=== PATIENT | female | born 1995 | race Caucasian/White ===

== ENCOUNTER 2019-11-25 03:08 | Outpatient (CLI) | payer BC, SELFPAY ==
[2019-11-25 03:20] VITALS: BP 111/70; PULSE 94
[2019-11-25 03:58] VITALS: BP 111/70; PULSE 94
== END 2019-11-25 04:13 | disposition home or self-care (01) ==
PROVIDERS: PCP Obstetrics & Gynecology; Visit Provider Obstetrics & Gynecology
DX: O42.90 Premature rupture of membranes, unspecified as to length of time between rupture and onset of labor, unspecified weeks of gestation (principal); Z3A.00 Weeks of gestation of pregnancy not specified
CPT/HCPCS: 59025; 84112

== ENCOUNTER 2019-12-08 05:38 | Inpatient (IN) | payer BC, SELFPAY ==
[2019-12-08] VITALS (154 sets, daily range): BP systolic 63–143; BP diastolic 32–110; PULSE 82–126; RESP 16–18; TEMP 36.7–37.4; O2SAT 97–100; BMI 35.2
[2019-12-08] MEDS: LACTATED RINGERS 1,000 ML 125 ML IV CONT ×4 (09:54→13:07)
[2019-12-08 09:55] LABS: Basophils Percent Auto 0.2 % (0.2-1.2); Eosinophils Absolute Auto 0.1 K/mm3 (0-0.3); Eosinophils Percent Auto 0.8 % (0-4.4); Hematocrit 37.2 % (37.0-47.0); Hemoglobin 12.1 g/dL (12.0-15.0); Immature Granulocyte Absolute 0.08 K/mm3 (0.00-0.031); Immature Granulocyte Percent A 0.8 % (0-0.5); Lymphocytes Absolute Auto 2.14 K/mm3 (0.9-3.2); Lymphocytes Percent Auto 21.2 % (18.3-44.2); Mean Corpuscular HGB Conc 32.5 g/dl (32-36); Mean Corpuscular Hemoglobin 28.9 pg (26-34); Mean Corpuscular Volume 88.8 fl (80-100); Mean Platelet Volume 10.9 fl (7.4-10.4); Monocytes Absolute Auto 0.7 K/mm3 (0.1-0.6); Monocytes Percent Auto 6.4 % (2.6-8.5); Neutrophils Absolute Auto 7.1 K/mm3 (1.3-6.7); Neutrophils Percent Auto 70.6 % (45.5-73.1); Platelet Count Result 145 k/mm3 (150-375); Red Blood Count 4.19 M/mm3 (4.2-5.4); Red Cell Distribution Width 15.2 % (11.5-14.5); White Blood Count 10.1 K/mm3 (4.5-10.0)
--- NOTE | 2019-12-08 11:04 | LDADM ---
This patient, Jewel Hilliard, was admitted to Labor/Delivery/Recovery 102 on 12/08/19 at 05:38. Plans for labor, pain management and were discussed with patient. Patient/family oriented to hospital policies and general routines including ID bracelet, bed and alarms, visiting hours, pain management, procedures, bathroom and other care routines, personal items, smoking policy, room service/diet and guest tray routines, security routines, and visiting hours. Patient/Family are encouraged to report perceived risks to care and to ask questions if they do not understand what they are told or what they should do. See OBIX for further documentation.
--- NOTE | 2019-12-08 13:10 | PM.IMHP ---
H&P: HPI History of Present Illness Chief complaint: labor Narrative: Jewel Hilliard is a 24yo @ 38.5wks who presented in early labor. She awoke with strong, painful contractions every couple of minutes. She was found to be adilson q3-5min and made change from 3 to 4-5cm. Good movement. No leakage of fluid or bleeding. Review of Systems Review of Systems: All systems reviewed & are unremarkable except as noted in HPI and below PMFSH Family History Family History Other Lymphoma Grandparent Lung cancer Mother Bipolar 1 disorder Social History Social History Smoking status: Never smoker Substance use: never Spiritual care concerns: No Meds Home Medications and Allergies Home Medications Medication Instructions Recorded Confirmed Type PNV cmb#95-ferrous fumarate-FA 1 tablet PO DAILY 11/23/19 11/23/19 History [] ferrous sulfate 325 mg PO DAILY 11/23/19 11/23/19 History Allergies Allergy/AdvReac Type Severity Reaction Status Date / Time No Known Allergies Allergy Verified 11/23/19 14:35 Vital Signs Vital Signs - 24 hr 12/08/19 09:55 12/08/19 10:00 12/08/19 10:30 Pulse Rate 101 H 97 91 Blood Pressure 123/81 118/71 121/84 Pulse Oximetry 12/08/19 10:41 12/08/19 10:43 12/08/19 10:46 Pulse Rate 104 H 97 96 Blood Pressure 130/110 H 141/92 H 143/63 H Pulse Oximetry 100 100 12/08/19 10:48 12/08/19 10:51 12/08/19 10:53 Pulse Rate 102 H 120 H 100 Blood Pressure 133/68 116/97 H 122/77 Pulse Oximetry 100 12/08/19 10:55 12/08/19 10:56 12/08/19 10:58 Pulse Rate 98 101 H Blood Pressure 129/79 128/52 L Pulse Oximetry 98 12/08/19 11:00 12/08/19 11:01 12/08/19 11:03 Pulse Rate 110 H 108 H Blood Pressure 128/86 129/71 Pulse Oximetry 98 12/08/19 11:05 12/08/19 11:06 12/08/19 11:08 Pulse Rate 105 H 100 Blood Pressure 129/73 132/79 Pulse Oximetry 98 12/08/19 11:11 12/08/19 11:13 12/08/19 11:16 Pulse Rate 97 95 93 Blood Pressure 129/72 130/60 135/68 Pulse Oximetry 98 98 12/08/19 11:18 12/08/19 11:20 12/08/19 11:21 Pulse Rate 101 H 102 H Blood Pressure 126/70 136/77 Pulse Oximetry 98 12/08/19 11:23 12/08/19 11:25 12/08/19 11:26 Pulse Rate 101 H 93 Blood Pressure 129/76 124/71 Pulse Oximetry 97 12/08/19 11:28 12/08/19 11:30 12/08/19 11:31 Pulse Rate 92 98 Blood Pressure 128/76 124/73 Pulse Oximetry 99 12/08/19 11:33 12/08/19 11:36 12/08/19 11:38 Pulse Rate 103 H 93 109 H Blood Pressure 134/75 131/77 134/79 Pulse Oximetry 98 12/08/19 11:40 12/08/19 11:41 12/08/19 11:43 Pulse Rate 99 106 H Blood Pressure 129/76 129/77 Pulse Oximetry 98 12/08/19 11:45 12/08/19 11:46 12/08/19 11:48 Pulse Rate 106 H 103 H Blood Pressure 123/77 123/64 Pulse Oximetry 99 12/08/19 11:51 12/08/19 11:53 12/08/19 11:55 Pulse Rate 98 109 H 120 H Blood Pressure 124/52 L 123/71 122/70 Pulse Oximetry 99 12/08/19 11:56 12/08/19 11:58 12/08/19 12:00 Pulse Rate 104 H 113 H Blood Pressure 131/79 124/58 L Pulse Oximetry 100 12/08/19 12:01 12/08/19 12:03 12/08/19 12:05 Pulse Rate 126 H 96 Blood Pressure 116/62 127/77 Pulse Oximetry 100 12/08/19 12:06 12/08/19 12:08 12/08/19 12:10 Pulse Rate 101 H 105 H Blood Pressure 128/68 126/72 Pulse Oximetry 100 12/08/19 12:11 12/08/19 12:13 12/08/19 12:15 Pulse Rate 100 98 Blood Pressure 129/75 125/69 Pulse Oximetry 98 12/08/19 12:16 12/08/19 12:18 12/08/19 12:21 Pulse Rate 102 H Blood Pressure 136/47 L Pulse Oximetry 100 99 12/08/19 12:23 12/08/19 12:25 12/08/19 12:26 Pulse Rate 100 109 H Blood Pressure 134/70 124/73 Pulse Oximetry 100 12/08/19 12:28 12/08/19 12:31 12/08/19 12:33 Pulse Rate 112 H 95 100 Blood Pressure 131/72 126/61 126/75 Pulse Oximetry 98 12/08/19 12:35
[2019-12-08] MEDS: IBUPROFEN 600 MG TABLET PO (18:24)
--- NOTE | 2019-12-08 18:52 | PM.OBPRVD ---
OB - Delivery Note Procedure Delivery date: 12/08/19 Procedure: Jewel progressed to 10cm dilation and had the urge to push. With good maternal effort the head delivered over intact perineum. No nuchal cord was palpated, and the shoulder and body delivered without issue. She delivered a male infant who had spontaneous cry (weight and length pending). His mouth and nose were bulb suctioned and he was immediately placed skin to skin. The umbilical cord was clamped and cut. A segment of the cord was collected for cord gases and the remaining cord blood was collected for typing. With pitocin running, gentle traction was applied to the cord and the placenta delivered without complications. A large gush of blood was noted and a bimanual exam showed uterine atony. Methergine 0.2mg IM was given. The uterus was then noted to be firm. The cervix, vagina, and perineum were examined and a first degree perineal laceration was noted. The patient did not have adequate pain control so 10cc of 1% Lidocaine was used for anesthesia. The laceration was then repaired in the normal fashion using 2-0 Vicryl. Good hemostasis was noted and a firm fundus was palpated. Sponge, lap, instrument and needle counts were correct at the end of the procedure. Mom and baby were left bonding skin to skin in the delivery suite. events: Labor Augmentation Delivery augmentation: rupture of membranes and pitocin Delivery monitor: external FHT and external uterine Route of delivery: Laceration description: Perineal - 1st Degree Delivery repair: vicryl Specimen: No Estimated blood loss (mL): 500 Anesthesia type: Epidural Disposition: floor [place] Baby Date of : 12/08/19 Time of : 16:47 Weeks of gestation at delivery: 38 gender: Male presentation: vertex position: Right Occiput Anterior Placenta delivery description: Expressed cord vessel description: 3 Vessels score one minute: 9 score five minutes: 9
[2019-12-08] MEDS: ONDANSETRON INJ 4 MG/2 ML VIAL IV PUSH (19:00)
--- NOTE | 2019-12-08 19:50 | OBPPTRN ---
Patient transferred to post room #277 via wheelchair. Support person present. Oriented to unit, room, information board, rooming in, admission packet and security measures. Patient verbalizes understanding. with patient.
[2019-12-09] MEDS: IBUPROFEN 600 MG TABLET PO ×4 (00:05→20:57)
[2019-12-09] MEDS: ACETAMINOPHEN 325 MG TABLET 650 MG PO ×2 (04:22→11:21)
[2019-12-09 04:30] LABS: Hematocrit 31.5 % (37.0-47.0); Hemoglobin 10.4 g/dL (12.0-15.0)
[2019-12-09 07:50] VITALS: BP 112/65; PULSE 74; RESP 16; TEMP 36.4; O2SAT 99
[2019-12-09] MEDS: DOCUSATE SODIUM 100 MG CAPSULE PO ×2 (08:03→17:03)
--- NOTE | 2019-12-09 08:27 | WPDANLDPN2 ---
Anes-Prog Note L&D Date/Time: 12/09/19 08:27 Comfortable throughout: labor and delivery Neuraxial method: epidural Epidural/Spinal procedure site: clean & non-tender Neuro status: Neuro function grossly intact. Cardiovascular status: normal Respiratory status: normal Airway patency: baseline Mental status: baseline Post-Op hydration status: normal Vital Signs: Last Vital Signs Temp 36.7 C 12/08/19 19:50 Pulse 98 12/08/19 19:50 Resp 16 12/08/19 19:50 BP 115/74 12/08/19 19:50 Pulse Ox 100 12/08/19 16:46 I/O: Intake & Output 12/08/19 12/09/19 12/09/19 23:59 07:59 15:59 Output Total 75 Balance -75 Patient feedback: Patient satisfied with anesthetic care.
[2019-12-09 08:46] LABS: Rapid Plasma Reagin Non-Reactive (NonReactive)
--- NOTE | 2019-12-09 13:04 | PM.OBPNVD ---
OB - PN: Subj Subjective Date/time seen: 12/09/19 13:04 Jewel is a 24yo now P2012 s/p @ 38.5wks Today she is doing well. She has been ambulating and tolerating regular diet. She reports mild pain that is controlled with tylenol/ibuprofen. Bleeding is minimal. +flatus. bottle feeding. No cp, SOB, FERNANDEZ, vision changes, N/V, fever, chills. OB - PN: Obj Data Labs CBC & Chem 7: 12/09/19 04:17 Labs: Laboratory Results - last 24 hr 12/08/19 12/09/19 09:44 04:17 Hgb 10.4 L Hct 31.5 L RPR Non-reactive OB - PN A/P Plan day: 1 Plan: routine care Comments: - meeting appropriate milestones - bottle feeding - Roddy is s/p circumcision - Pain meds PRN - Pelvic rest, no heavy lifting, ER return precautions reviewed (pain, bleeding, fever, HTN, N/V) - anticipate d/c home tomorrow on PPD#2 Time Spent With Patient Time: Total time spent is greater than 50% in coordination of care (as documented) at patient's floor/unit and/or counseling patient: Review of Systems Review of Systems: All systems reviewed & are unremarkable except as noted in HPI and below Exam Const: General: comfortable, no acute distress, alert and awake Resp: Effort & Inspection: normal respiratory effort Auscultation: clear to auscultation bilaterally Cardio: Rate: regular rate GI: Auscultation: normal bowel sounds Other: mildly distended, soft, fundus firm below umbilicus : Other: normal lochia Psych: Appearance: grossly normal Affect: normal affect Attitude: cooperative
[2019-12-09 21:00] VITALS: BP 113/75; PULSE 83; RESP 14; TEMP 36.6
[2019-12-10 07:50] VITALS: BP 113/78; PULSE 85; RESP 18; TEMP 36.4; O2SAT 98
[2019-12-10] MEDS: DOCUSATE SODIUM 100 MG CAPSULE PO (08:48)
[2019-12-10] MEDS: IBUPROFEN 600 MG TABLET PO (08:48)
[2019-12-10] MEDS: MEASLES,MUMPS,RUBELLA VACCINE 0.5 ML VIAL SUB-Q (08:48)
--- NOTE | 2019-12-10 12:00 | PC.NURSE ---
Patient received instruction on viewing the discharge video Mother & Baby Care, The First Two Weeks online. Patient was given the opportunity and encouraged to ask questions. Patient verbalized understanding of information shared and has been given the mother/baby guide for home reference.
[2019-12-13 10:54] VITALS: BP 122/89; PULSE 85; RESP 20; TEMP 36.6
--- NOTE | 2019-12-22 07:57 | PM.OBDSVD ---
DS: Diagnosis Admitting Diagnosis Admitting Diagnosis: Encounter for supervision of normal , unspecified, third trimester Discharge Diagnosis (1) : Code(s): Z34.90 - Encounter for supervision of normal , unspecified, unspecified trimester Status: Acute OB - DS: Summary OB Procedures : None OB Procedures Intrapartum: Spontaneous Vag Delivery OB Procedures: : None Peripartum Data Infant Delivery Method: Natural Vaginal Laceration description: Perineal - 1st Degree Episiotomy description: None complications: none [place] 1: Gender: Male Disposition of : other (s/p circumcision) Status at Discharge Functional status at discharge: independent ambulation Overall status at discharge: patient is back to baseline Time Spent with Patient Time attestation: Total time spent providing and/or coordinating discharge services: Exam Narrative: Exam Narrative: Const: General: comfortable, no acute distress, alert and awake Resp: Effort & Inspection: normal respiratory effort Auscultation: clear to auscultation bilaterally Cardio: Rate: regular rate GI: Auscultation: normal bowel sounds Other: mildly distended, soft, fundus firm below umbilicus : Other: normal lochia Psych: Appearance: grossly normal Affect: normal affect Attitude: cooperative Discharge Plan Discharge Attending physician on discharge: Stephanie Sahni Discharging Clinician: Stephanie Sahni Anticipated Discharge Date/Time: 12/10/19 13:00 Patient Disposition: Home, Self-Care Activity: pelvic rest Diet: regular Discharge Instructions: Education: Mom and Baby Guide and Preeclampsia handout Given to: Mother Follow-Up: Call your delivering provider's office for an appointment to be seen in: 4-6 weeks. Mom and baby should come to the [facility] for the follow-up appointment. Appointment Date/Time: December 13, 2019 at 11:00 am What to expect at your follow-up visit: Physical Assessment Call [phone] if you are unable to keep your appointment time. BREAST CARE: 1. Wear a snug supportive bra. 2. For engorgement discomfort: Bottle Feeding: A. May apply ice packs EPISIOTOMY/PERINEAL CARE: 1. Until bleeding stops, use your audrey bottle after urinating 2. Change your pad frequently throughout the day 3. You may take sitz baths several times a day (fill your bathtub with warm water and soak for 20 minutes.) Do NOT bathe in the water 4. No tub baths until seen by your physician - You may shower ACTIVITY: 1. Rest as much as possible. 2. Do not exercise or lift anything heavier than your baby (such as laundry or other children.) 3. Avoid stairs or driving as much as possible. 4. Do not put anything into the vagina. No douching, tampons, or sexual activity until seen by physician. NOTIFY PHYSICIAN IF YOU HAVE ANY QUESTIONS OR IF ANY OF THE FOLLOWING SYMPTOMS OCCUR: 1. If your episiotomy becomes red, swollen, or more painful than what you have experienced in the hospital. 2. If your vaginal bleeding becomes foul smelling. 3. If your vaginal bleeding becomes more heavy than a period or if your bleeding changes from pink to bright red. However, you may pass an occasional walnut-sized clot once or twice for the first week . 4. If you experience a sharp, shooting pain in you calves. 5. If you discover a hard, reddened area on your breast or if you experience flu-like symptoms. DIET: 1. Eat regular, well-balanced meals. 2. Drink plenty of fluids daily. Stand Alone Forms: General Discharge Information Follow-up/Referrals: Stephanie Sahni MD [Physician] - Discharge Medications: New acetaminophen [Mapap (acetaminophen)] 325 mg Tablet 650 mg PO Q6H PRN (Reason: Mild Pain (1-3) Or Headache) Qty: 30 RF: 0 docusate sodium 100 mg Capsule 100 mg PO BID PRN (Reason: Constipation) 10 Days Qty: 30 RF: 0 ibup
== END 2019-12-10 12:30 | disposition home or self-care (01) | DRG 807 ==
LOC: ANHLDR 14:37 → ANHOB2 20:55
PROVIDERS: Admitting Provider Obstetrics & Gynecology; Visit Provider Obstetrics & Gynecology
DX: O70.0 First degree perineal laceration during delivery (principal); Z37.0 Single live birth; Z3A.38 38 weeks gestation of pregnancy
CPT/HCPCS: 36415; 85014; 85018; 85025; 86592; 86850; 86900; 86901; 90710; A9270; J2405; J2590; J2795; J7120

== ENCOUNTER 2020-05-26 08:28 | Emergency (ER) | payer BC, SELFPAY ==
[2020-05-26 08:36] VITALS: BP 121/82; PULSE 120; RESP 20; TEMP 37.2; O2SAT 96
--- NOTE | 2020-05-26 09:00 | ED.FEVER ---
HPI - Fever General Chief Complaint: Fever Stated Complaint: Fever, Post Op Friday Time Seen by Provider: 05/26/20 08:34 History of Present Illness HPI Narrative: Patient is a 25-year-old female who presents the ER with fever and lower abdominal pain. Patient underwent LEEP procedure on 05/22/2020. She then developed dysuria couple days ago and she was started on Macrobid yesterday and had her first dose last night. She woke up this morning with fever. She reports some suprapubic discomfort that is been ongoing for the last couple of days. No malodorous discharge or vaginal bleeding but she did start to have some spotting today. Reports she has been eating and drinking normally. He is without diarrhea or constipation. No respiratory symptoms. Related Data Home Medications Medication Instructions Recorded Confirmed ibuprofen 400 mg PO Q6H PRN 05/26/20 Allergies Allergy/AdvReac Type Severity Reaction Status Date / Time amoxicillin Allergy Hives Verified 05/26/20 08:44 Review of Systems Review of Systems: All systems reviewed & are unremarkable except as noted in HPI and below Constitutional: Constitutional: Denies chills and Reports fever(s) ENT: Denies nasal congestion and Denies sore throat Respiratory: Respiratory: Denies cough and Denies dyspnea Gastrointestinal: Gastrointestinal: Reports abdominal pain, Denies diarrhea, Denies nausea and Denies vomiting Genitourinary: Genitourinary: Denies hematuria, Reports dysuria and Denies urinary incontinence [facility] Past Medical History Medical History (Updated 05/26/20 @ 11:10 by Audie Anne MD) Anxiety GERD (gastroesophageal reflux disease) Surgical History Surgical History (Updated 05/26/20 @ 09:02 by Audie Anne MD) H/O [facility] Social History Social History Smoking status: Never smoker Substance use: never Gender identity (if verbalized by the patient): Female Spiritual care concerns: No Exam Narrative: Exam Narrative: GENERAL: Well-appearing, well-nourished, and in no acute distress. HEAD: Normocephalic, atraumatic. CHEST: Clear to auscultation. No respiratory distress. HEART: Tachycardic and regular. Normal peripheral pulses. ABDOMEN: Soft, mild suprapubic/LLQ tenderness w/o guarding, nondistended, normal active bowel sounds. EXTREMITIES: Normal range of motion. No edema. SKIN: Warm, dry, no rash. NEURO: Alert and oriented x3. PSYCH: Normal mood and affect. 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 Vital Signs Vital signs: Vital Signs Temperature 99.0 F 05/26/20 08:36 Pulse Rate 120 H 05/26/20 08:36 Respiratory Rate 20 05/26/20 08:36 Blood Pressure 121/82 05/26/20 08:36 Pulse Oximetry 96 05/26/20 08:36 Temperature 99.0 F 05/26/20 08:36 Pulse Rate 120 H 05/26/20 08:36 Respiratory Rate 20 05/26/20 08:36 Blood Pressure 121/82 05/26/20 08:36 Pulse Oximetry 96 05/26/20 08:36 MDM - Fever Lab Data Result diagrams: 05/26/20 08:57 05/26/20 08:57 Labs: Lab Results 05/26/20 05/26/20 05/26/20 Range/Units 08:57 08:57 08:57 WBC 8.0 (4.5-10.0) K/mm3 RBC 4.96 (4.2-5.4) M/mm3 Hgb 14.3 D (12.0-15.0) g/dL Hct 42.7 (37.0-47.0) % MCV 86.1 (80-100) fl MCH 28.8 (26-34) pg MCHC 33.5 (32-36) g/dl RDW 11.8 (11.5-14.5) % Plt Count 174 (150-375) k/mm3 MPV 10.8 H (7.4-10.4) fl Immature Gran % (Auto) 0.3 (0-0.5) % Neut % (Auto) 86.2 H (45.5-73.1) % Lymph % (Auto) 8.4 L (18.3-44.2) % [place] % (Auto) 4.3 (2.6-8.5) % Eos % (Auto) 0.4 (0-4.4) % Baso % (Auto) 0.4 (0.2-1.2) % Lymph # (Auto) 0.67 L (0.9-3.2) K/mm3 [place] # (Auto) 0.3 (0.1-0.6) K/mm3 Eos # (Auto) 0.0 (0-0.3) K/mm3 Baso # (Auto) 0.0 (0.0-0.1) K/mm3 Abs Immat Gran (auto) 0.02 (0.00-0.031) K/mm3 Absolute Neuts
[2020-05-26] MEDS: SODIUM CHLORIDE 0.9% IV 1,000 ML 999 ML IV CONT (09:02)
[2020-05-26] MEDS: KETOROLAC 30 MG/ML VIAL (*BKC) IV PUSH (09:03)
[2020-05-26 09:16] LABS: Basophils Percent Auto 0.4 % (0.2-1.2); Eosinophils Percent Auto 0.4 % (0-4.4); Hematocrit 42.7 % (37.0-47.0); Hemoglobin 14.3 g/dL (12.0-15.0); Immature Granulocyte Absolute 0.02 K/mm3 (0.00-0.031); Immature Granulocyte Percent A 0.3 % (0-0.5); Lymphocytes Absolute Auto 0.67 K/mm3 (0.9-3.2); Lymphocytes Percent Auto 8.4 % (18.3-44.2); Mean Corpuscular HGB Conc 33.5 g/dl (32-36); Mean Corpuscular Hemoglobin 28.8 pg (26-34); Mean Corpuscular Volume 86.1 fl (80-100); Mean Platelet Volume 10.8 fl (7.4-10.4); Monocytes Absolute Auto 0.3 K/mm3 (0.1-0.6); Monocytes Percent Auto 4.3 % (2.6-8.5); Neutrophils Absolute Auto 6.9 K/mm3 (1.3-6.7); Neutrophils Percent Auto 86.2 % (45.5-73.1); Platelet Count Result 174 k/mm3 (150-375); Red Blood Count 4.96 M/mm3 (4.2-5.4); Red Cell Distribution Width 11.8 % (11.5-14.5)
[2020-05-26 09:23] LABS: Add Urine Microscopic? YES; Appearance Urine Cloudy (Clear); Bacteria Urine Trace /hpf; Bilirubin Urine Negative (Negative); Blood Urine 3+ (Negative); Color Urine Straw (Yellow); Glucose Urine UA Negative (Negative); Ketones Urine Negative (Negative); Leukocyte Esterase Ur 2+ LEU/UL (Negative); Mucus Urine Rare /lpf; Nitrate Urine Negative (Negative); Protein Urine Negative (Negative); Specific Grav Ur 1.009 (1.001-1.035); Squamous Epithelial Cell Urine Many /hpf (Few); Urobilinogen Urine Negative mg/dL (<2.0)
[2020-05-26 09:31] LABS: Anion Gap 13.2 mmol/L (7-16); Blood Urea Nitrogen 12 mg/dL (7-17); Calcium 9.6 mg/dL (8.4-10.2); Carbon Dioxide 26 mmol/L (22-30); Chloride 102 mmol/L (98-107); Estimated CRCL calculation 116 ml/min; Estimated Glomerular Filt Rate > 60; Glucose 111 mg/dL (65-105); Potassium 4.2 mmol/L (3.4-5.0); Sodium 137 mmol/L (137-145)
[2020-05-26 11:19] VITALS: BP 134/77; PULSE 103; RESP 16; TEMP 37.2; O2SAT 100
== END 2020-05-26 11:21 | disposition home or self-care (01) ==
PROVIDERS: Emergency Provider Emergency Medicine
DX: N39.0 Urinary tract infection, site not specified (principal); K21.9 Gastro-esophageal reflux disease without esophagitis
CPT/HCPCS: 36415; 80048; 81001; 85025; 87077; 87086; 87088; 87186; 96361; 96374; 99284; J1885; J7030

== ENCOUNTER 2021-05-01 06:57 | Inpatient (IN) | payer BC, SELFPAY ==
[2021-05-01] VITALS (100 sets, daily range): BP systolic 98–142; BP diastolic 45–87; PULSE 57–236; RESP 16–18; TEMP 36.1–36.9; O2SAT 97–100; BMI 34.5
--- NOTE | 2021-05-01 06:57 | LDADM ---
This patient, Jewel Hilliard, was admitted to Labor/Delivery/Recovery 105 on 05/01/21 at 06:57. Plans for labor, pain management and were discussed with patient. Patient/family oriented to hospital policies and general routines including ID bracelet, bed and alarms, visiting hours, pain management, procedures, bathroom and other care routines, personal items, smoking policy, room service/diet and guest tray routines, security routines, and visiting hours. Patient/Family are encouraged to report perceived risks to care and to ask questions if they do not understand what they are told or what they should do. See OBIX for further documentation.
[2021-05-01 07:27] LABS: Basophils Percent Auto 0.3 % (0.2-1.2); Eosinophils Absolute Auto 0.2 K/mm3 (0-0.3); Eosinophils Percent Auto 1.8 % (0-4.4); Hematocrit 34.3 % (37.0-47.0); Hemoglobin 11.2 g/dL (12.0-15.0); Immature Granulocyte Absolute 0.08 K/mm3 (0.00-0.031); Immature Granulocyte Percent A 0.8 % (0-0.5); Lymphocytes Absolute Auto 2.71 K/mm3 (0.9-3.2); Mean Corpuscular HGB Conc 32.7 g/dl (32-36); Mean Corpuscular Volume 88.9 fl (80-100); Mean Platelet Volume 10.8 fl (7.4-10.4); Monocytes Absolute Auto 0.6 K/mm3 (0.1-0.6); Monocytes Percent Auto 6.6 % (2.6-8.5); Neutrophils Percent Auto 62.5 % (45.5-73.1); Platelet Count Result 145 k/mm3 (150-375); Red Blood Count 3.86 M/mm3 (4.2-5.4); Red Cell Distribution Width 14.1 % (11.5-14.5); White Blood Count 9.7 K/mm3 (4.5-10.0)
[2021-05-01] MEDS: LACTATED RINGERS 1,000 ML 125 ML IV CONT ×2 (07:38→10:35)
[2021-05-01] MEDS: OXYTOCIN 30 UNITS/NS 500 ML 30 UNITS/500 ML BAG IV CONT (07:38)
--- NOTE | 2021-05-01 07:42 | PM.IMHP ---
H&P: HPI History of Present Illness Date/Time: 05/01/21 07:42 Jewel is a 26yo @ 39.2wks (SUNNY 05/06/21) who presents to L&D for IOL. She reports good movement. She has irregular ctxs, no VB or LOF. She has had regular care with Marcello LIZAMA Her is complicated by: - H/o LEEP, s/p normal cervical lengths - Elevated glucola, normal 3hr OGTT - Mild anemia on iron - CMV non-immune Chief Complaint: induction of labor Review of Systems Review of Systems: All systems reviewed & are unremarkable except as noted in HPI and below (HPI) [facility] Past Medical History Medical History Anxiety GERD (gastroesophageal reflux disease) Surgical History Surgical History H/O LEEP Family History Family History Other Lymphoma Grandparent Lung cancer Mother Bipolar 1 disorder Father Bladder cancer Cancer of kidney Social History Social History Smoking status: Never smoker Second hand tobacco smoke exposure: Yes Substance use: never Gender identity (if verbalized by the patient): Female Spiritual care concerns: No Meds Home Medications and Allergies Home Medications Medication Instructions Recorded Confirmed Type aspirin [Aspirin Low Dose] 81 mg PO DAILY 04/18/21 04/18/21 History prenat.vits,kostas,sma-datx-swawx 1 tablet PO HS 04/18/21 04/18/21 History [ #2] Allergies Allergy/AdvReac Type Severity Reaction Status Date / Time amoxicillin Allergy Hives Verified 05/26/20 08:44 Vital Signs Vital Signs - 24 hr 05/01/21 07:34 Pulse Rate 99 Blood Pressure 140/74 Exam Const: General: cooperative, healthy appearing, comfortable and no acute distress Resp: Effort & Inspection: normal respiratory effort and able to speak in complete sentences Cardio: Rate: regular rate GI: Inspection: normal to inspection GI Palp: No abdominal tenderness and Yes Soft to palpation : Other: FHT's: 140's/ mod ulises/ + accels/ no decels - cat 1 TOCO; irregular ctxs q 3-5m Cervix: /-2 Membranes: intact Presentation: cephalic Skin: General skin exam: normal color Neuro: General: patient oriented x3 Extrem: General: normal to inspection Psych: Appearance: grossly normal Affect: normal affect Attitude: cooperative H&P: Results Labs Labs: Short CBC 05/01/21 Range/Units 07:21 WBC 9.7 (4.5-10.0) K/mm3 Hgb 11.2 L D (12.0-15.0) g/dL Hct 34.3 L (37.0-47.0) % Plt Count 145 L (150-375) k/mm3 Assessment and Plan Assessment and plan (1) Encounter for elective induction of labor: Code(s): Z34.90 - Encounter for supervision of normal , unspecified, unspecified trimester Status: Acute (2) : Qualifiers: Weeks of gestation: 39 weeks Qualified Code(s): Z3A.39 - 39 weeks gestation of Code(s): Z34.90 - Encounter for supervision of normal , unspecified, unspecified trimester Status: Acute Additional Plan - Admit to L&D - Pitocin per protocol - Continuous monitoring; reassuring FHT - Anesthesia consult PRN pain - GBS negative
--- NOTE | 2021-05-01 07:50 | WPDHPUPDATE1 ---
History and Physical Update Update Date/Time: 05/01/21 07:50 History and Physical has been reviewed, including an updated exam of the patient. There are NO changes in the patient's condition. Risks, benefits, and alternatives have been discussed and questions answered. Patient agrees to proceed with procedure.
--- NOTE | 2021-05-01 07:51 | WPDANESEPP ---
Anes - Eval Pre Procedure Procedure: labor epidural Date/Time: 05/01/21 07:51 Surgeon: rosetta Preop Diagnosis: pain during labor Pre Op Diagnosis: induction of labor Patient Data Age: 26 Gender: F Height: 1.7 m Weight: 100 kg Last Vital Signs Pulse 103 H 05/01/21 07:45 BP 130/73 05/01/21 07:45 Allergies Allergy/AdvReac Type Severity Reaction Status Date / Time amoxicillin Allergy Hives Verified 05/26/20 08:44 Home Medications Medication Instructions Recorded Confirmed Type aspirin [Aspirin Low Dose] 81 mg PO DAILY 04/18/21 04/18/21 History prenat.vits,kostas,qmy-jrlo-czevo 1 tablet PO HS 04/18/21 04/18/21 History [ #2] Laboratory Tests 05/01/21 05/01/21 07:21 07:21 WBC 9.7 K/mm3 K/mm3 (4.5-10.0) RBC 3.86 M/mm3 L M/mm3 (4.2-5.4) Hgb 11.2 g/dL L D g/dL (12.0-15.0) Hct 34.3 % L % (37.0-47.0) MCV 88.9 fl fl (80-100) MCH 29.0 pg pg (26-34) MCHC 32.7 g/dl g/dl (32-36) RDW 14.1 % % (11.5-14.5) Plt Count 145 k/mm3 L k/mm3 (150-375) MPV 10.8 fl H fl (7.4-10.4) Immature Gran % (Auto) 0.8 % H % (0-0.5) Neut % (Auto) 62.5 % % (45.5-73.1) Lymph % (Auto) 28.0 % % (18.3-44.2) [place] % (Auto) 6.6 % % (2.6-8.5) Eos % (Auto) 1.8 % % (0-4.4) Baso % (Auto) 0.3 % % (0.2-1.2) Lymph # (Auto) 2.71 K/mm3 K/mm3 (0.9-3.2) [place] # (Auto) 0.6 K/mm3 K/mm3 (0.1-0.6) Eos # (Auto) 0.2 K/mm3 K/mm3 (0-0.3) Baso # (Auto) 0.0 K/mm3 K/mm3 (0.0-0.1) Abs Immat Gran (auto) 0.08 K/mm3 H K/mm3 (0.00-0.031) Absolute Neuts (auto) 6.0 K/mm3 K/mm3 (1.3-6.7) Absolute Nucleated RBC 0.0 K/mm3 K/mm3 (0.0-0.012) Nucleated RBC % 0.0 % % (0.0-0.2) RPR Pending Patient hx anesthesia problems: none Family hx anesthesia problems: none PMFSH Past Medical History Medical History Anxiety GERD (gastroesophageal reflux disease) Surgical History Surgical History H/O LEEP Family History Family History Other Lymphoma Grandparent Lung cancer Mother Bipolar 1 disorder Father Bladder cancer Cancer of kidney Social History Social History Smoking status: Never smoker Second hand tobacco smoke exposure: Yes Substance use: never Gender identity (if verbalized by the patient): Female Spiritual care concerns: No Exam Day of Procedure 05/01/21 07:51
[2021-05-01 10:05] LABS: Rapid Plasma Reagin Non-Reactive (NonReactive)
--- NOTE | 2021-05-01 12:15 | PM.OBPNLAB ---
Pain Control Date/time seen: 05/01/21 12:15 Pain control: epidural Pelvic Exam Dilation (cm): 4 Effacement (%): 80 station: -2 Amniotic membrane status: Ruptured (clear, AROM 1215) Contractions Monitor mode: External Contraction frequency: 3 Contraction pattern: Regular Status status: Category l Assessment and Plan Pitocin rate (mU/min): 12 Assessment: induction ongoing Plan: continuous present management
[2021-05-01] MEDS: OXYTOCIN 30 UNITS/NS 500 ML 30 UNITS/500 ML BAG 125 UNITS IV CONT (14:45)
--- NOTE | 2021-05-01 15:16 | PM.OBPRVD ---
OB - Delivery Note Procedure Delivery date: 05/01/21 events: Labor Induction Intrapartal events: None Induction method: per pitocin protocol Delivery augmentation: rupture of membranes Delivery monitor: external FHT and external uterine Route of delivery: Laceration Description: Cervical (extending to apex of vagina) Delivery repair: vicryl Quantitative Blood Loss (ml): 465 Anesthesia type: Epidural Disposition: floor [place] Baby Date of : 05/01/21 Time of : 14:15 Weeks of gestation at delivery: 39 (.2) gender: Female Weight (pounds): 7 Weight (ounces): 10 presentation: vertex position: Left Occiput Anterior Placenta delivery description: Expressed cord vessel description: 3 Vessels score one minute: 9 score five minutes: 9 Narrative: Jewel rapidly progressed from 4 cm to complete dilation in less than 2 hours. She had strong desire to push, and after one contraction, she delivered the head over intact perineum. She easily delivered the 's shoulders and body without complications. The infant had spontaneous cry and was immediately placed skin to skin. Delayed cord clamping was performed. The umbilical cord was then clamped and cut. With Pitocin running, and gentle downward traction on the cord, the placenta delivered without complications. The uterus was found to be firm but brisk bleeding was noted. Retractors were used to closely examine the cervix where a laceration was noted starting at 6:00 p.m. extending to 8:00 p.m. and involving the right apex of the vagina. The laceration was repaired using 2 separate 2 0 Vicryl sutures in an interlocking fashion. Good hemostasis was noted and the laceration was noted to be reapproximated well. Good uterine tone was noted. Minimal bleeding was noted. Rectal exam was performed and no sutures were palpated. Sponge, lap, instrument, and needle counts were correct at the end the procedure. Patient denied any symptoms of anemia and was found to have a normal blood pressure and heart rate. Plans for CBC and 1 hour and close monitoring of pain and vital signs. Mom and baby were left bonding in the birthing suite in a stable condition.
[2021-05-01 15:30] LABS: Hematocrit 37.4 % (37.0-47.0); Hemoglobin 11.8 g/dL (12.0-15.0); Mean Corpuscular HGB Conc 31.6 g/dl (32-36); Mean Corpuscular Hemoglobin 28.6 pg (26-34); Mean Corpuscular Volume 90.6 fl (80-100); Mean Platelet Volume 10.6 fl (7.4-10.4); Platelet Count Result 147 k/mm3 (150-375); Red Blood Count 4.13 M/mm3 (4.2-5.4); White Blood Count 11.2 K/mm3 (4.5-10.0)
--- NOTE | 2021-05-01 17:24 | PC.NURSE ---
Patient transferred to post room #282 per wheelchair from labor and delivery. Support person present. Oriented to unit, room, information board, rooming in, admission packet and security measures. Patient verbalizes understanding.
[2021-05-01] MEDS: HYDROcodone/acetaminophen (*CRX) 5-325 MG TABLET 1 TAB PO (19:13)
[2021-05-01] MEDS: DOCUSATE SODIUM 100 MG CAPSULE PO (19:13)
[2021-05-01] MEDS: IBUPROFEN 600 MG TABLET PO (19:13)
[2021-05-02] MEDS: IBUPROFEN 600 MG TABLET PO ×2 (01:33→08:16)
[2021-05-02 04:00] VITALS: BP 116/71; PULSE 79; RESP 16; TEMP 36.4; O2SAT 98
[2021-05-02] MEDS: HYDROcodone/acetaminophen (*CRX) 5-325 MG TABLET 1 TAB PO (04:49)
[2021-05-02 05:50] LABS: Hematocrit 33.7 % (37.0-47.0); Hemoglobin 10.8 g/dL (12.0-15.0)
[2021-05-02 06:02] LABS: Anion Gap 6 mmol/L (8-16); Blood Urea Nitrogen 8 mg/dL (7-17); Calcium 8.8 mg/dL (8.4-10.2); Carbon Dioxide 23 mmol/L (22-30); Chloride 108 mmol/L (98-107); Estimated CRCL calculation 171 ml/min; Estimated Glomerular Filt Rate > 60; Glucose 76 mg/dL (65-105); Potassium 4.3 mmol/L (3.4-5.0); Sodium 137 mmol/L (137-145)
[2021-05-02] MEDS: MULTIVIT/MIN/PREN/FOL AC/IRON TABLET 1 TAB PO (08:16)
[2021-05-02] MEDS: DOCUSATE SODIUM 100 MG CAPSULE PO (08:18)
[2021-05-02 08:20] VITALS: BP 119/76; PULSE 66; RESP 16; TEMP 36.4; O2SAT 100
[2021-05-02] MEDS: ACETAMINOPHEN 325 MG TABLET 650 MG PO (12:12)
[2021-05-02] MEDS: SIMETHICONE 80 MG TAB.CHEW PO (12:14)
[2021-05-02 12:19] VITALS: BP 99/62; PULSE 81; RESP 16; TEMP 36.8; O2SAT 97
--- NOTE | 2021-05-02 13:00 | PM.OBPNVD ---
OB - PN: Subj Subjective Date/time seen: 05/02/21 13:00 PPD#1 Jewel reports doing well today. She reports her pain is controlled w/ PO pain meds; having some cramping/vaginal soreness. 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 She has tolerated regular diet. She has voided, passed gas. She has ambulated w/o symptoms of anemia. She is bottle feeding. She would like to go home today. She denies CP, SOB, fever, chills, vision changes, FERNANDEZ, palpitations, N/V, dizziness. OB - PN: Obj Data Labs CBC & Chem 7: 05/02/21 04:58 05/02/21 04:58 Labs: Laboratory Results - last 24 hr 05/01/21 05/02/21 05/02/21 15:22 04:58 04:58 WBC 11.2 H RBC 4.13 L Hgb 11.8 L 10.8 L Hct 37.4 33.7 L MCV 90.6 MCH 28.6 MCHC 31.6 L RDW 14.0 Plt Count 147 L MPV 10.6 H Sodium 137 Potassium 4.3 Chloride 108 H Carbon Dioxide 23 Anion Gap 6 L BUN 8 Creatinine 0.50 L Estim Creat Clear Calc 171 Estimated GFR > 60 Glucose 76 Calcium 8.8 OB - PN A/P Assessment and Plan (1) Status post vaginal delivery: Status: Acute (2) Cervical laceration: Qualifiers: Encounter type: initial encounter Qualified Code(s): S37.63XA - Laceration of uterus, initial encounter Code(s): S37.63XA - Laceration of uterus, initial encounter Status: Acute Plan day: 1 Plan: routine care and discharge home Comments: - f/u in 4 wks - pelvic rest; take meds as prescribed - ER return precautions discussed: fever, bleeding, n/v/abd pain, HTN Time Spent With Patient Time: Total time spent is greater than 50% in coordination of care (as documented) at patient's floor/unit and/or counseling patient: Review of Systems Review of Systems: All systems reviewed & are unremarkable except as noted in HPI and below (HPI) Exam Const: General: cooperative, healthy appearing, comfortable and no acute distress Resp: Effort & Inspection: normal respiratory effort Auscultation: clear to auscultation bilaterally Cardio: Rate: regular rate GI: Inspection: normal to inspection and non-distended GI Palp: No abdominal tenderness and Yes Soft to palpation Auscultation: normal bowel sounds : Other: fundus firm Skin: General skin exam: normal color Neuro: General: patient oriented x3 Extrem: General: normal to inspection Psych: Appearance: grossly normal Affect: normal affect Attitude: cooperative
--- NOTE | 2021-05-02 15:27 | PC.NURSE ---
Patient viewed the discharge video Mother & Baby Care, The First Two Weeks . Patient was given the opportunity and encouraged to ask questions. Patient verbalized understanding of information shared and has been given the mother/baby guide for home reference.
[2021-05-04 10:06] VITALS: BP 114/73; PULSE 54; RESP 18; TEMP 36.6; O2SAT 100
--- NOTE | 2021-05-09 11:22 | PM.OBDSVD ---
DS: Admitting Diagnosis Admitting Diagnosis Admitting Diagnosis: Induction of labor DS: Discharge Diagnosis Discharge Diagnosis (1) Status post vaginal delivery: Status: Acute (2) Cervical laceration: Qualifiers: Encounter type: initial encounter Qualified Code(s): S37.63XA - Laceration of uterus, initial encounter Code(s): S37.63XA - Laceration of uterus, initial encounter Status: Acute OB - DS: Summary OB Procedures : Ultrasound OB Procedures Intrapartum: Spontaneous Vag Delivery OB Procedures: : None Peripartum Data Infant Delivery Method: Natural Vaginal Laceration Description: Cervical (extending to right apex of vagina) complications: none 1: Gender: Female Disposition of : home Status at Discharge Functional status at discharge: independent ambulation Overall status at discharge: patient is back to baseline Time Spent with Patient Time attestation: Total time spent providing and/or coordinating discharge services: Time spent: Less than 30 minutes Exam Const: General: cooperative, healthy appearing, comfortable and no acute distress Resp: Effort & Inspection: normal respiratory effort and able to speak in complete sentences Auscultation: clear to auscultation bilaterally Cardio: Rate: regular rate GI: Inspection: normal to inspection and non-distended GI Palp: No abdominal tenderness and Yes Soft to palpation Auscultation: normal bowel sounds : Other: fundus firm Skin: General skin exam: normal color Neuro: General: patient oriented x3 Extrem: General: normal to inspection Psych: Appearance: grossly normal Affect: normal affect Attitude: cooperative Discharge Plan Discharge Attending physician on discharge: Stephanie Sahni Discharging Clinician: Stephanie Sahni Anticipated Discharge Date/Time: 05/02/21 16:00 Patient Disposition: Home, Self-Care Activity: pelvic rest Diet: regular Discharge Instructions: Education: Mom and Baby Guide Given to: Mother Follow-Up: Call your delivering provider's office for an appointment to be seen in: 4 Weeks [facility]. Appointment Date/Time: May 04, 2021 at 10:00 am What to expect at your follow-up visit: Physical Assessment Call [phone] if you are unable to keep your appointment time. BREAST CARE: * Wear a snug supportive bra. * For engorgement discomfort: Bottle Feeding: * May apply ice packs EPISIOTOMY/PERINEAL CARE: * Until bleeding stops, use your audrey bottle after urinating * Change your pad frequently throughout the day * No tub baths until seen by your physician - You may shower ACTIVITY: * Rest as much as possible. * Do not exercise or lift anything heavier than your baby (such as laundry or other children.) * Avoid stairs or driving as much as possible. * Do not put anything into the vagina. No douching, tampons, or sexual activity until seen by physician. NOTIFY PHYSICIAN IF YOU HAVE ANY QUESTIONS OR IF ANY OF THE FOLLOWING SYMPTOMS OCCUR: * If your perineum becomes red, swollen, or more painful than what you have experienced in the hospital. * If your vaginal bleeding becomes foul smelling. * If your vaginal bleeding becomes more heavy than a period or if your bleeding changes from pink to bright red. However, you may pass an occasional walnut-sized clot once or twice for the first week . * If you experience a sharp, shooting pain in you calves. * If you discover a hard, reddened area on your breast or if you experience flu-like symptoms. DIET: * Eat regular, well-balanced meals. * Drink plenty of fluids daily. If , drink to thirst. Stand Alone Forms: General Discharge Information Follow-up/Referrals: Stephanie Sahni MD [Physician] - 4 Weeks Discharge Medications:
== END 2021-05-02 15:30 | disposition home or self-care (01) | DRG 806 ==
LOC: ANHLDR 07:00 → ANHOB2 17:32
PROVIDERS: Admitting Provider Obstetrics & Gynecology; PCP Nurse Practitioner Family; Visit Provider Obstetrics & Gynecology
DX: O99.02 Anemia complicating childbirth (principal); O71.4 Obstetric high vaginal laceration alone; Z37.0 Single live birth; O71.3 Obstetric laceration of cervix; D64.9 Anemia, unspecified; Z3A.39 39 weeks gestation of pregnancy
CPT/HCPCS: 36415; 80048; 85014; 85018; 85025; 85027; 86592; 86850; 86900; 86901; A9270; J2590; J2795; J7120

== ENCOUNTER 2023-06-09 00:41 | Day surgery (SDC) | payer BC, SELFPAY ==
[2023-06-02 15:32] VITALS: BMI 34.4
--- NOTE | 2023-06-02 15:41 | PC.NURSE ---
Report to the Outpatient Waiting Room, entrance under the green pavilion located off [facility], at 0730 on 06/09/23. Planned Procedure Time: 0930. Time changes happen often and if your time is changed the preop area will call you the afternoon before. - You and your visitor will be asked to self-screen and do not enter if you have any COVID symptoms. - A mask is optional within the hospital at this time. Patients may have clear liquids (water, carbonated beverages, clear teas, apple juice) until 3 hours prior to surgery with a maximum of 20 ounces. - No food from midnight until time of surgery Take the following medications with a SIP of water the morning of surgery: n/a DO NOT STOP ANY OF YOUR OTHER PRESCRIPTION MEDICATIONS PRIOR TO SURGERY ?EXCEPT THE FOLLOWING Medications to discontinue per physician n/a Date to take last dose Please no make-up, nail mauritian, hairspray, perfume, deodorant, or body powder the day of surgery. No jewelry (including any body piercings) or valuables the day of surgery, leave them at home. Please take a shower or bath the night before, or the morning of, surgery with an antibacterial soap. Wear comfortable, loose fitting clothing. - Jewelry must be removed prior to entering the operating room. Rings and piercings that are not removed may be cut off. - The hospital will not accept responsibility for valuables. - Please leave all valuables, including medications, at home the day of surgery. If you are going home after surgery, a licensed entry driver operator must drive you home. - NO public transportation without another adult if you receive anesthesia. - We recommend that an adult stay with you for 24 hours following discharge. - We also recommend that you do not drive, make important decision, drink alcoholic beverages, or take any drugs that were not prescribed by your health care provider for at least 24 hours after your discharge time. Follow any additional instructions given to you from your surgeon. If you or anyone in your household have experienced Covid symptoms in the past week, please notify your surgeon or the nurse liaison at the phone number below for possible testing. Telephone instructions given to patient and asked if any additional questions and then verbalized understanding. Patient advised to call surgeon office or pre surgery nurse liaison [phone] if any additional questions.
--- NOTE | 2023-06-08 15:53 | PM.IMHP ---
H&P: HPI History of Present Illness Date/Time: 06/08/23 15:53 Chief Complaint: desires sterilization Narrative: Jewel is a 28yo P3023, LMP 03/2023 who presents for tubal. She has a Mirena IUD in place since 06/2021 (strings missing but US confirmed correct placement 04/2022). She denies any pain. She had a normal period last month and reports a lot of mood changes. Other BCs have caused issues with her mood/anxiety. She is sexually active w/o issue. She is wanting her IUD out as she does not want another child; will not get vasectomy. No questions/concerns. Has a h/o GABRIELLE 3 s/p LEEP 05/2020 (margins negative, normal pap 08/2022). Also feeling very fatigue, tired, having hair loss. Review of Systems Constitutional: Constitutional: Denies chills, Denies fever(s) and Denies headache(s) Eyes: Eyes: Denies change in vision ENT: Denies dizziness and Denies headache(s) Cardiovascular: Cardiovascular: Denies chest pain and Denies dyspnea Respiratory: Respiratory: Denies cough and Denies dyspnea Gastrointestinal: Gastrointestinal: Denies abdominal pain and Denies change in stool character Genitourinary: Genitourinary: Denies abnormal menses, Denies pelvic pain, Denies vaginal discharge, Denies vaginal odor and Denies vaginal pruritus Neurologic: Denies dizziness and Denies headache(s) Psychiatric: Psychiatric: Denies anxiety and Denies depression PMFSH Past Medical History Medical History ADD (attention deficit disorder) Anxiety GERD (gastroesophageal reflux disease) Surgical History Surgical History H/O LEEP History of sinus surgery Family History Family History Other Lymphoma Grandparent Lung cancer Mother Bipolar 1 disorder Father Bladder cancer Cancer of kidney Social History Social History Years smoked: 6 Smoking status: Former smoker Tobacco type: cigarettes Second hand tobacco smoke exposure: Yes Smoking end date: 06/02/15 Alcohol intake: current Alcohol use details: 1 per month Substance use: former Substance use type: marijuana Other substance usage details: last usage 10 years ago Lack of Transportation: No Lack of Food: Never True Current Housing: Decline to Answer Concerned About Future Housing: Decline to Answer Difficulty Paying Gas/Electric Bills: No Difficulty Paying for Meds: No Currently Unemployed: No Education: High School Diploma/GED Difficulty w/ Childcare or Family Care: No Living arrangements: with family 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 Gender identity (if verbalized by the patient): Female Spiritual care concerns: No Meds Home Medications and Allergies Home Medications Medication Instructions Recorded Confirmed Type No Home Medications 05/07/23 05/07/23 History Allergies Allergy/AdvReac Type Severity Reaction Status Date / Time amoxicillin AdvReac Mild Itching Verified 06/02/23 15:30 Exam Const: General: cooperative, healthy appearing, comfortable and no acute distress Orientation/consciousness: patient oriented x3 Resp: Effort & Inspection: normal respiratory effort Cardio: Rate: regular rate GI: Inspection: normal to inspection GI Palp: No abdominal tenderness and Yes Soft to palpation : Other: deferred to OR Skin: General skin exam: normal color Neuro: General: patient oriented x3 Extrem: General: normal to inspection Psych: Appearance: grossly normal Affect: normal affect Attitude: cooperative Assessment and Plan Assessment and plan (1) Admission for sterilization: Code(s): Z30.2 - Encounter for sterilization Status: Acute (2) IUD threads lost: Qualifiers: Encounter type: subsequent encounter Qualified
[2023-06-09] VITALS (9 sets, daily range): BP systolic 116–124; BP diastolic 59–90; PULSE 59–96; RESP 14–20; TEMP 36.4–36.6; O2SAT 100
--- NOTE | 2023-06-09 07:35 | WPDHPUPDATE1 ---
History and Physical Update Update Date/Time: 06/09/23 07:35 History and Physical has been reviewed, including an updated exam of the patient. There are NO changes in the patient's condition. Risks, benefits, and alternatives have been discussed and questions answered. Patient agrees to proceed with laparoscopic bilateral salpingectomy with IUD removal.
[2023-06-09] MEDS: ACETAMINOPHEN 500 MG TABLET 1000 MG PO (08:05)
[2023-06-09] MEDS: LACTATED RINGERS 1,000 ML 30 ML IV CONT ×3 (08:10→11:40)
--- NOTE | 2023-06-09 08:10 | WPDANESEPPF ---
Anes - Initial Pre Proc Eval Procedure: Operation Date: 06/09/23 09:30 Proposed Procedures p Bilateral Laparoscopic Salpingectomy, - Stephanie Sahni MD s Hysteroscopy with Intrauterine Device Removal - Stephanie Sahni MD Date/Time: 06/09/23 08:10 Surgeon: Stephanie Sahni MD Pre Op Diagnosis: Desire Sterilization Patient Data Age: 28 Gender: F Height: 1.7 m Weight: 97.9 kg Last Vital Signs Temp 36.6 C 06/09/23 07:45 Pulse 96 06/09/23 07:45 Resp 20 06/09/23 07:45 BP 121/81 06/09/23 07:45 Pulse Ox 100 06/09/23 07:45 O2 Del Method Room Air 06/09/23 07:45 Allergies Allergy/AdvReac Type Severity Reaction Status Date / Time amoxicillin AdvReac Mild Itching Verified 06/02/23 15:30 Home Medications Medication Instructions Recorded Confirmed Type No Home Medications 05/07/23 06/09/23 History Patient hx anesthesia problems: none Family hx anesthesia problems: none Results Review: All pre-operative results and documents have been reviewed as part of the pre-operative evaluation. [facility] Past Medical History Medical History ADD (attention deficit disorder) Anxiety GERD (gastroesophageal reflux disease) Surgical History Surgical History H/O LEEP History of sinus surgery Family History Family History Other Lymphoma Grandparent Lung cancer Mother Bipolar 1 disorder Father Bladder cancer Cancer of kidney Social History Social History Years smoked: 6 Smoking status: Former smoker Tobacco type: cigarettes Second hand tobacco smoke exposure: Yes Smoking end date: 06/02/15 Alcohol intake: current Alcohol use details: 1 per month Substance use: former Substance use type: marijuana Other substance usage details: last usage 10 years ago Lack of Transportation: No Lack of Food: Never True Current Housing: Decline to Answer Concerned About Future Housing: Decline to Answer Difficulty Paying Gas/Electric Bills: No Difficulty Paying for Meds: No Currently Unemployed: No Education: High School Diploma/GED Difficulty w/ Childcare or Family Care: No Living arrangements: with family 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 Informed Consent: The patient's anesthetic plan and its attendant risks and benefits were discussed with the patient/family/POA. Questions were solicited and answers provided to the satisfaction of the patient/family/POA.
[2023-06-09] MEDS: KETOROLAC 15 MG/ML VIAL (*BKC) IV PUSH (08:11)
[2023-06-09] MEDS: SCOPOLAMINE 1.5 MG PATCH TRANSDERM (08:16)
--- NOTE | 2023-06-09 10:16 | P.OP_ITS ---
Procedure Note - Detailed Date of Procedure 06/09/23 Pre-op Diagnosis Desire Sterilization, retained IUD Post-op Diagnosis Same Procedure Performed Laparoscopic bilateral salpingectomy, hysteroscopic IUD removal Surgeon Stephanie Sahni MD Anesthesia General and Local (30cc of 0.25% marcaine w/ epi) Findings Uterus 8cm; IUD strings not visualized at cervical os. Normal uterus, bilateral fallopian tubes and ovaries. Tubes removed w/o issue. Normal uterine cavity; IUD and strings in cavity; bilateral tubal ostia visualized. IUD removed in whole and discarded. Good hemostasis at end of case. Description of Procedure Jewel was taken to the operating room where she was placed under general endotracheal anesthesia without complications. She was then prepped and draped in the usual sterile fashion in the dorsal lithotomy position with her legs in low Marty stirrups and her arms tucked at her side with a strap over her chest. A time-out was performed and no preoperative antibiotics were indicated. My attention was turned down below where her bladder was drained via straight catheterization. A bivalve speculum was then placed within the vagina where the cervix was easily identified. The anterior lip of the cervix was grasped with a single-tooth tenaculum, the uterus was sounded, and a diagnostic uterine manipulator was placed without complications. My gloves were changed and my attention was turned to her abdomen. An umbilical incision was made, and a 5 mm trocar was placed under direct visualization without complications. Once intra- abdominal placement was confirmed the abdomen was insufflated with carbon dioxide gas. She was then placed in Trendelenburg and two additional 5 mm ports were placed in the left and right lower quadrants under direct visualization without complications. The above findings were noted. The left fallopian tube was then elevated and the mesosalpinx was serially clamped, coagulated, transected using the LigaSure device until the proximal end of the fallopian tube was reached. The proximal end of the fallopian tube was cross clamped, coagulated and transected. The tube was then removed from the abdomen. The same procedure was then performed on the right side without any complications. Good hemostasis was noted. All instruments were removed from the abdomen. The insufflation was released and the trocars were removed. The 3 laparoscopic incision sites were reapproximated using 4-0 Monocryl and covered with Dermabond. The incisions were then infiltrated using 0.25% Marcaine. The uterine manipulator was removed. A bivalve speculum was placed within the vagina where the cervix was easily identified. The anterior lip of the cervix was grasped with a single-tooth tenaculum. The cervix was then serially dilated to allow for the hysteroscope. The hysteroscope was advanced into the uterine cavity with the above findings noted. Using hysteroscopic alligator forceps the IUD strings were grasped and the IUD was removed without complications. The hysteroscope was once again advanced into the uterine cavity where it was noted to be normal. Good hemostasis was noted. All instruments were removed from the vagina. Sponge, lap, instrument, and needle counts were correct at the end of the procedure. Patient was awoken from anesthesia and taken to recovery with plans of same-day discharge home. Estimated Blood Loss 10 IV Fluids 1,600 (Fluid deficit: 100) Urine Output 100 Pathology Yes (left and right fallopian tubes) Complications No immediate complications Condition Stable Disposition Same day [facility] Billing Surgery - Charge Forward: Surgery Billing
== END 2023-06-09 12:30 | disposition home or self-care (01) ==
PROVIDERS: PCP Family Medicine; Visit Provider Obstetrics & Gynecology
PROC: (CPT 49320; principal; 2023-06-09 09:30)
PROC: 0U5B8ZZ Destruction of Endometrium, Via Natural or Artificial Opening Endoscopic (ICD-10-PCS; CPT 58563; 2023-06-09 09:30)
DX: Z30.2 Encounter for sterilization (principal); T83.32XA Displacement of intrauterine contraceptive device, initial encounter; Y84.8 Other medical procedures as the cause of abnormal reaction of the patient, or of later complication, without mention of misadventure at the time of the procedure; Z87.891 Personal history of nicotine dependence; E66.9 Obesity, unspecified; Z68.33 Body mass index [BMI] 33.0-33.9, adult; Z85.41 Personal history of malignant neoplasm of cervix uteri
CPT/HCPCS: 58661; 58579; 88302; A9270; J0330; J1100; J1885; J2250; J2405; J2704; J3010; J7030; J7120

== ENCOUNTER 2024-03-24 13:01 | Outpatient (CLI) | payer BC, SELFPAY ==
--- NOTE | ~2024-03-24 | CT_ITS ---
EXAMINATION: CT sinus wo con DATE: 03/24/2024 13:15 INDICATION: Chronic sinusitis TECHNIQUE: Computed tomography (CT) of the paranasal sinuses was performed without intravenous contra st. The dose-length product was 419.24 mGy-cm. Automated exposure control and iterative reconstructio n technique were employed. COMPARISON: CT dated 01/11/2019 FINDINGS: There is mild mucosal thickening of the ethmoid and maxillary sinuses. There is mucus reten tion cyst of the right maxillary sinus. Mastoids are pneumatized. Leftward nasal septal deviation. Ri ght ostiomeatal unit is occluded by soft tissue. Left ostiomeatal unit is patent. Mastoids are pneuma tized. IMPRESSION: 1. Mild sinusitis involving the ethmoid and maxillary sinuses. Reviewed, dictated and finalized at location B.
== END 2024-03-24 13:02 ==
LOC: GOSHIMG 13:02
PROVIDERS: PCP Family Medicine; Visit Provider Otolaryngology
DX: J32.2 Chronic ethmoidal sinusitis (principal)
CPT/HCPCS: 70486

== ENCOUNTER 2024-05-31 02:15 | Day surgery (SDC) | payer BC, SELFPAY ==
--- NOTE | 2024-05-26 10:06 | SUR.PREOP ---
Report to the Outpatient Waiting Room, entrance under the green pavilion located off [facility], at time 0600 on date 05/31/24. Planned Procedure Time: 0730. Time changes happen often and if your time is changed the preop area will call you the afternoon before. - You and your visitor will be asked to self-screen and do not enter if you have any COVID symptoms. - A mask is optional within the hospital at this time. Patients may have clear liquids (water, carbonated beverages, clear teas, apple juice) until 3 hours prior to surgery with a maximum of 20 ounces. - NO CLEAR LIQUIDS AFTER 0430 - No food from midnight until time of surgery - Infants may have breast milk until 4 hours before surgery, formula 6 hours prior to surgery. - Children will be allowed to drink immediately following surgery. If applicable, please bring a bottle or sippy cup to assist with drinking. Juice, water, soda, and popsicles are readily available. For infants on formula, please bring formula the day of surgery. Pacifiers are allowed. Take the following medications with a SIP of water the morning of surgery: N/A DO NOT STOP ANY OF YOUR OTHER PRESCRIPTION MEDICATIONS PRIOR TO SURGERY ?EXCEPT THE FOLLOWING Medications to discontinue per physician N/A Date to take last dose Please no make-up, nail bengali, hairspray, perfume, deodorant, or body powder the day of surgery. No jewelry (including any body piercings) or valuables the day of surgery, leave them at home. Please take a shower or bath the night before, or the morning of, surgery with an antibacterial soap. Wear comfortable, loose fitting clothing. Children are encouraged to wear pajamas. - Jewelry must be removed prior to entering the operating room. Rings and piercings that are not removed may be cut off. - The hospital will not accept responsibility for valuables. - Please leave all valuables, including medications, at home the day of surgery. If you are going home after surgery, a licensed lead driver must drive you home. - NO public transportation without another adult if you receive anesthesia. - We recommend that an adult stay with you for 24 hours following discharge. - We also recommend that you do not drive, make important decision, drink alcoholic beverages, or take any drugs that were not prescribed by your health care provider for at least 24 hours after your discharge time. For Pediatric surgeries, we recommend two adults accompany the child home. Follow any additional instructions given to you from your surgeon. If you or anyone in your household have experienced Covid symptoms in the past week, please notify your surgeon or the nurse liaison at the phone number below for possible testing. Telephone instructions given to SHARYN HALL and asked if any additional questions and then verbalized understanding. Patient advised to call surgeon office or pre surgery nurse liaison [phone] if any additional questions.
[2024-05-26 10:22] VITALS: BMI 33.7
[2024-05-31] VITALS (10 sets, daily range): BP systolic 110–141; BP diastolic 61–94; PULSE 66–85; RESP 11–16; TEMP 36.4; O2SAT 96–100
[2024-05-31] MEDS: LACTATED RINGERS 1,000 ML 30 ML IV CONT ×2 (06:39→08:24)
[2024-05-31] MEDS: ACETAMINOPHEN 500 MG TABLET 1000 MG PO (06:39)
--- NOTE | 2024-05-31 06:56 | WPDANESEPPF ---
Anes - Initial Pre Proc Eval Procedure: Operation Date: 05/31/24 07:30 Proposed Procedures p Fusion Guided Bilateral Ethmoidectomy, Bilateral Maxillary Antrostomy, Bilateral Turbinate Reduction, - Cristo Jovel MD s Possible Septoplasty - Cristo Jovel MD Date/Time: 05/31/24 06:56 Surgeon: Cristo Jovel MD Pre Op Diagnosis: nasal polyps,chronic sinusitis Patient Data Age: 29 Gender: F Height: 1.7 m Weight: 95.6 kg Last Vital Signs Temp 97.6 F 05/31/24 06:54 Pulse 83 05/31/24 06:54 Resp 16 05/31/24 06:54 BP 118/75 05/31/24 06:54 Pulse Ox 99 05/31/24 06:54 O2 Del Method Room Air 05/31/24 06:54 Allergies Allergy/AdvReac Type Severity Reaction Status Date / Time amoxicillin AdvReac Mild Itching Verified 05/31/24 06:56 Home Medications Medication Instructions Recorded Confirmed Type drospirenone 3 mg-ethinyl 1 tablet PO HS 05/26/24 05/26/24 History estradiol 0.02 mg tablet Patient hx anesthesia problems: none Family hx anesthesia problems: none Results Review: All pre-operative results and documents have been reviewed as part of the pre-operative evaluation. [facility] Past Medical History Medical History ADD (attention deficit disorder) Anxiety GERD (gastroesophageal reflux disease) Surgical History Surgical History H/O LEEP History of sinus surgery History of tubal ligation Family History Family History Other Lymphoma Grandparent Lung cancer Mother Bipolar 1 disorder Father Bladder cancer Cancer of kidney Social History Social History Years smoked: 6 Smoking status: Former smoker Tobacco type: cigarettes Second hand tobacco smoke exposure: Yes Smoking end date: 06/02/15 Alcohol intake: current Alcohol use details: 1 per month Substance use: former Substance use type: marijuana Other substance usage details: last usage 10 years ago Lack of Transportation: No Lack of Food: Never True Current Housing: Decline to Answer Concerned About Future Housing: Decline to Answer Difficulty Paying Gas/Electric Bills: No Difficulty Paying for Meds: No Currently Unemployed: No Education: High School Diploma/GED Difficulty w/ Childcare or Family Care: No Living arrangements: with family 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 Gender identity (if verbalized by the patient): Female Sexual Orientation (if Verbalized by the Patient): Straight or Heterosexual Spiritual care concerns: No Anes - Eval Final PreProcedure Day of Procedure 05/31/24 06:56 Patient weight: normal Heart: regular rate and rhythm Lungs: clear to auscultation Airway: Mallampati scale class III Neurological: alert and oriented Last oral intake: >/= 8 hours ASA classification: II Emergent: no Anesthetic plan: proceed Anesthesia type and monitoring: general and standard monitoring Results Review: All pre-operative results and documents have been reviewed as part of the pre-operative evaluation. Anxiety by hx, ex smoker, 4-5 cigs/days for several years, quit several years ago. Informed Consent: The patient's anesthetic plan and its attendant risks and benefits were discussed with the patient/family/POA. Questions were solicited and answers provided to the satisfaction of the patient/family/POA.
--- NOTE | 2024-05-31 07:09 | PM.IMHP ---
H&P: HPI History of Present Illness Date/Time: 05/31/24 07:09 Chief Complaint: chronic sinusitis Review of Systems Review of Systems: All systems reviewed & are unremarkable except as noted in HPI and below [facility] Past Medical History Medical History ADD (attention deficit disorder) Anxiety GERD (gastroesophageal reflux disease) Surgical History Surgical History H/O LEEP History of sinus surgery History of tubal ligation Family History Family History Other Lymphoma Grandparent Lung cancer Mother Bipolar 1 disorder Father Bladder cancer Cancer of kidney Social History Social History Years smoked: 6 Smoking status: Former smoker Tobacco type: cigarettes Second hand tobacco smoke exposure: Yes Smoking end date: 06/02/15 Alcohol intake: current Alcohol use details: 1 per month Substance use: former Substance use type: marijuana Other substance usage details: last usage 10 years ago Lack of Transportation: No Lack of Food: Never True Current Housing: Decline to Answer Concerned About Future Housing: Decline to Answer Difficulty Paying Gas/Electric Bills: No Difficulty Paying for Meds: No Currently Unemployed: No Education: High School Diploma/GED Difficulty w/ Childcare or Family Care: No Living arrangements: with family 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 Gender identity (if verbalized by the patient): Female Sexual Orientation (if Verbalized by the Patient): Straight or Heterosexual Spiritual care concerns: No Meds Home Medications and Allergies Home Medications Medication Instructions Recorded Confirmed Type drospirenone 3 mg-ethinyl 1 tablet PO HS 05/26/24 05/31/24 History estradiol 0.02 mg tablet Allergies Allergy/AdvReac Type Severity Reaction Status Date / Time amoxicillin AdvReac Mild Itching Verified 05/31/24 06:56 Vital Signs Vital Signs - 24 hr 05/31/24 06:54 Temperature 36.4 C Pulse Rate 83 Respiratory Rate 16 Blood Pressure 118/75 Pulse Oximetry 99 Oxygen Delivery Room Air Exam Narrative: deviated septum, chronic sinusitis, rest of exam wnl Assessment and Plan Assessment and plan (1) Chronic sinusitis: Code(s): J32.9 - Chronic sinusitis, unspecified Status: Acute Plan Jewel is here for revision FESS and septoplasty for persistent sinus disease. r/b/a reviewed, all questions answered, she understands and agrees to proceed. refer to outpt H&P for additional details.
--- NOTE | 2024-05-31 07:10 | WPDHPUPDATE1 ---
History and Physical Update Update Date/Time: 05/31/24 07:10 History and Physical has been reviewed, including an updated exam of the patient. There are NO changes in the patient's condition. Risks, benefits, and alternatives have been discussed and questions answered. Patient agrees to proceed with procedure.
[2024-05-31] MEDS: ceFAZolin 2 GM/D5W 50 ML 2 GM/50 ML BAG IVPB (07:30)
[2024-05-31] MEDS: LIDO 1%/EPINEPHRINE 1:100,000 50 ML VIAL INFILTRATE (07:51)
[2024-05-31] MEDS: MUPIROCIN 2% OINT 22 GM TUBE 1 APPLIC TOPICAL (08:15)
--- NOTE | 2024-05-31 08:27 | W.PM.PROC2 ---
Procedure Note - Detailed Date of Procedure 05/31/24 Pre-op Diagnosis nasal polyps,chronic sinusitis, deviated septum Post-op Diagnosis Same Procedure Performed Septoplasty, turbinoplasty. bilateral maxillary antrostomy and total ethmoidectomy, image guided Surgeon Cristo Jovel MD Anesthesia General Indications deviated septu and chronic sinusitis Findings Significant mucous in the right maxillary sinus, photos taken. Nasopore bilaterally, left septal deviation addressed. Description of Procedure On the date of procedure the patient was met in the preoperative area and risk and benefits of the procedure reviewed with the patient as documented in the H&P and they elected to proceed with surgery. Patient was brought back to the operating room by the anesthesia team and underwent general endotracheal anesthesia. Once an adequate plane of anesthesia was obtained a timeout was performed to assure the patient identification the patient here to be performed were correct. They were.The patient was then prepped and draped in the normal fashion for endoscopic sinus surgery. The diffusion image guidance system was calibrated and used for the entire case. Afrin-soaked pledgets were placed in the nasal cavities bilaterally. The entire case was performed under endoscopic visualization. Nasal endoscopy was performed at the beginning of the case. 1% lidocaine with 1:100,000 epinephrine was then injected into the root of the middle turbinate and lateral nasal wall. The left side was narrowed due to septal deviation.? Thus, septoplasty was required.? A left modified paz incision was made in the left mid septum and a mucoperichondrial flap was elevated in the usual fashion. The flap was elevated under endoscopic visualization and the remainder of the case was performed with endoscopic assistance. The cartilage was then disarticulated from the bony-cartilaginous junction and the deviated cartilage was removed. Further deviated bone and cartilage was removed from the maxillary crest and posterior bony septum with care to avoid injury to the mucoperichondrial flap using a combination of dissection and Miko-Paulette forceps. Once this was completed, the paz incision was reapproximated, no suture needed. Attention was then directed towards the right side. The middle turbinate was medialized and the osteomeatal complex was identified with a mychal probe. Using a 90 degree backbiter, the uncinate process was reflected anteriorly and removed using a combination of sharp and powered dissection. The maxillary antrostomy was then created and widened by identifying the natural ostia and opening the sinus with straight yaya-cut forceps, backbiter, and microdebrider. Significant thick mucous was encountered and removed using irrigation and suction. Continuing with the microdebrider, the anterior ethmoid bulla was opened. Careful dissection was carried out posteriorly, through the basal lamella and posterior ethmoid cells until the sphenoid rostrum was identified. Using an image guided curved suction as well as J-curette, the posterior most ethmoid cell was identified and the ethmoids were bluntly fractured and dissected from posterior to anterior along the base of the skull. The remaining bone fragments were removed with appropriate curved instruments and microdebrider. Next, the left maxillary antrostomy and total ethmoidectomy were carried out in identical fashion. ?No clinical evidence of CSF throughout the case.? With all sinuses opened and clear, nasopore packing was placed in the ethmoid acvities bilaterally. Hemostasis was ensured. Lastly, the bilateral inferior turbinates were reduced submucosally using 2mm microdebrider and then outfractured with a sayer elevator. This significantly opened the airway. At this point, the procedure was concluded. Care the patient was transferred back to the anesthesia team and the patient was awoke in the operating room and transferred back to
[2024-05-31] MEDS: fentaNYL CITRATE INJ (*CRX) 100 MCG/2 ML VIAL 25 MCG IV PUSH ×2 (08:39→08:46)
--- NOTE | 2024-05-31 09:46 | SUR.PHASEII ---
patient stated it is hard to catch her breath. Put on pulse ox 98% on room air. Dr. Alfonso aware and at bedside as of 946
[2024-05-31] MEDS: oxyCODONE HCL (*CRX) 5 MG TAB IR PO (10:07)
== END 2024-05-31 10:49 | disposition home or self-care (01) ==
PROVIDERS: PCP Family Medicine; Visit Provider Otolaryngology
PROC: (CPT 30520; principal; 2024-05-31 07:30)
PROC: (CPT 30520; 2024-05-31 07:30)
DX: J32.9 Chronic sinusitis, unspecified (principal); J34.2 Deviated nasal septum; F98.8 Other specified behavioral and emotional disorders with onset usually occurring in childhood and adolescence; F41.9 Anxiety disorder, unspecified; K21.9 Gastro-esophageal reflux disease without esophagitis; F12.90 Cannabis use, unspecified, uncomplicated; Z98.890 Other specified postprocedural states; Z98.51 Tubal ligation status; Z87.891 Personal history of nicotine dependence; Z80.1 Family history of malignant neoplasm of trachea, bronchus and lung; Z80.52 Family history of malignant neoplasm of bladder; Z80.51 Family history of malignant neoplasm of kidney; Z80.7 Family history of other malignant neoplasms of lymphoid, hematopoietic and related tissues
CPT/HCPCS: 30520; 30140; 31256; 31255; 61782; A9270; J0330; J0690; J1100; J2250; J2405; J2704; J3010; J7050; J7120

== ENCOUNTER 2025-02-28 10:16 | Emergency (ER) | payer BC, SELFPAY ==
[2025-02-28 10:50] VITALS: BP 112/80; PULSE 82; RESP 16; TEMP 36.3; O2SAT 99
--- NOTE | 2025-02-28 10:54 | ED_ITS ---
HPI - URI/Sore Throat General Chief Complaint: Upper Respiratory Infection Stated Complaint: SORE THROAT Time Seen by Provider: 02/28/25 10:53 History of Present Illness HPI Narrative: 30-year-old female presented for complaint of a sore throat for 3 days. Endorses son with strep throat. Denies shortness of breath, wheezing, nausea, vomiting, diarrhea fevers or chills. Related Data Home Medications ?Medication ?Instructions ?Recorded ?Confirmed ?Last Taken ?Type No Home Medications 02/28/25 02/28/25 Unknown History Allergies Allergy/AdvReac Type Severity Reaction Status Date / Time amoxicillin AdvReac Mild Itching Verified 02/28/25 10:41 Review of Systems Review of Systems: CONSTITUTIONAL: Denies body aches, fever, chills, or sweats. EYES: Denies visual changes, redness, or discharge. ENT: reports sore throat rhinorrhea, congestion, CARDIOVASCULAR: Denies chest pain, palpitations, or edema. RESPIRATORY: Denies dyspnea. GASTROINTESTINAL: Denies abdominal pain, nausea, vomiting, or diarrhea. SKIN: Denies rash NEUROLOGIC: Denies headache PMFSH Past Medical History Medical History ADD (attention deficit disorder) Anxiety GERD (gastroesophageal reflux disease) Surgical History Surgical History History of tubal ligation History of sinus surgery Septoplasty, turbinoplasty. bilateral maxillary antrostomy and total ethmoidectomy H/O LEEP Family History Family History Other Lymphoma Grandparent Lung cancer Mother Bipolar 1 disorder Father Bladder cancer Cancer of kidney Social History Social History Social History: Years smoked: 6 Smoking status: Former smoker Tobacco type: cigarettes Second hand tobacco smoke exposure: Yes Smoking end date: 06/02/15 Alcohol intake: current Alcohol use details: rarely Substance use: former Substance use type: marijuana Other substance usage details: last usage 10 years ago Do You Feel Safe in your Home?: Yes Lack of Transportation: No Lack of Food: Never True Current Housing: I Have Housing Concerned About Future Housing: No Difficulty Paying Gas/Electric Bills: No Difficulty Paying for Meds: No Currently Unemployed: No Education: High School Diploma/GED Difficulty w/ Childcare or Family Care: No Living arrangements: with family Occupation/Education: unemployed 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 EYES: conjunctivae clear ENT: Mucous membranes moist. TM pearly nagy with normal light reflex bilaterally; no tragal tenderness. Oropharynx erythematous without lesions. Tonsils not enlarged and without exudate. No drooling, no hoarseness, no trismus, uvula midline. No tripod positioning, hot potato voice, or soft palate swelling. NECK: Supple. No lymphadenopathy CHEST: Clear to auscultation, breath sounds equal. No respiratory distress, speaks in full sentences. HEART: Regular rate and rhythm. No murmur heard. SKIN: Warm, dry, no rash. NEURO: Alert and oriented x3. Course Course Emergency Course: Patient is aware of diagnosis, understands and agrees to treatment plan. Anticipatory guidance given. Patient agrees to follow-up as directed and is aware of reasons to seek care at the emergency department. Portions of this record may have been created with voice recognition software Level of Care: Express Care Visit Vital Signs Vital signs: Vital Signs Temperature 97.4 F L 02/28/25 10:50 Pulse Rate 82 02/28/25 10:50 Respiratory Rate 16 02/28/25 10:50 Blood Pressure 112/80 02/28/25 10:50 Pulse Oximetry 99 02/28/25 10:50 Temperature 97.4 F L 02/28/25 10:50 Pulse Rate 82 02/28/25 10:50 Respiratory Rate 16 02/28/25 10:50 Blood Pressure 112/80 02/28/25 10:50 Pulse Oximetry 99 02/28/25 10:50 MDM - URI/Sore Throat MDM Narrative Medical decision making narrative: neg strep result reviewed with pt. Advise supportive treatments. Patient is appropriate for outpatient treatment and follow-up. Differential Diagnosis Differential diagnosis: Likely upper respiratory infection, viral infection and pharyngitis Discharge Plan Discharge Clinical Impression: Pharyngitis Patient Disposition: Home Condition: Stable Instructions: Antibiotic Form, Strep Throat (ED) Additional Instructions: Rapid strep swab was negative today You will be notified in a few days if the culture comes back positive for strep, and appropriate antibiotics will be called in at that time. if symptoms are due to a viral illness, it is not treated with antibiotics. Viral symptoms can be present for up to 10-14 days. Recommendations: Flonase spray and Zyrtec for sinus congestion Cough syrup may cause drowsiness; avoid driving or take it at night time. Tylenol every 8 hours as needed for pain/fever Soft foods, cool liquids, warm tea. Gargle with warm saltwater twice a day. Chloraseptic spray and throat lozenges. Rest and stay hydrated. --Follow up with your PCP --Go to the ER immediately if you cannot swallow your saliva, trouble breathing/wheezing, throat swelling, pain is persistent and severe Patient Language: Spanish Prescriptions: No Action No Home Medications Follow-up/Referrals: Dc Gutierrez MD [Primary Care Provider] - Time of Disposition: 11:12
[2025-02-28 11:33] LABS: EDSTREPNEGPOS1 Negative (Negative)
== END 2025-02-28 11:17 | disposition home or self-care (01) ==
PROVIDERS: Emergency Provider Nurse Practitioner Family; PCP Family Medicine
DX: J02.9 Acute pharyngitis, unspecified (principal); Z87.891 Personal history of nicotine dependence; K21.9 Gastro-esophageal reflux disease without esophagitis
CPT/HCPCS: 87081; 87880; 99213; G0463

== ENCOUNTER 2025-08-21 09:44 | Emergency (ER) | payer BC, SELFPAY ==
[2025-08-21 09:58] VITALS: BP 131/76; PULSE 93; RESP 18; TEMP 36.9; O2SAT 99
--- NOTE | 2025-08-21 10:48 | ED_ITS ---
HPI - General Adult General Chief complaint: Upper Respiratory Infection Stated complaint: sinus congestion Time Seen by Provider: 08/21/25 10:48 Source: patient Mode of arrival: ambulatory Limitations: no limitations History of Present Illness HPI narrative: 30-year-old female patient presents to the [facility] with complaints of sinus congestion and pain and tenderness to the left side of her face. Patient states about 2 weeks ago she had a head cold that lasted for about a week those symptoms have since resolved but states the last couple of days she has had a lot of pressure to the left side of the face and goes into the left side of the head causing a headache. Patient states she has been taking her Flonase doing her Neti pots and states that her doctor prescribed her some methylprednisone but has not been helping. . Related Data Allergies Allergy/AdvReac Type Severity Reaction Status Date / Time doxycycline AdvReac Intermediate Headache Verified 08/21/25 10:05 amoxicillin AdvReac Mild Itching Verified 08/21/25 10:05 Review of Systems Review of Systems: CONSTITUTIONAL: Denies fever, chills, or sweats. EYES: Denies visual changes, redness, or discharge. ENT: Denies rhinorrhea, positive congestion, denies sore throat, or otalgia. CARDIOVASCULAR: Denies chest pain, palpitations, or edema. RESPIRATORY: Denies cough or dyspnea. GASTROINTESTINAL: Denies abdominal pain, nausea, vomiting, or diarrhea. GENITOURINARY: Denies dysuria or hematuria. SKIN: Denies rash or itching. MUSCULOSKELETAL: Denies back pain, joint pain, or myalgia. NEUROLOGIC: Denies headache, numbness, or weakness. PSYCHIATRIC: Denies anxiety or depression. [facility] Past Medical History Medical History ADD (attention deficit disorder) Anxiety GERD (gastroesophageal reflux disease) Surgical History Surgical History History of tubal ligation History of sinus surgery Septoplasty, turbinoplasty. bilateral maxillary antrostomy and total ethmoidectomy H/O LEEP Family History Family History Other Lymphoma Grandparent Lung cancer Mother Bipolar 1 disorder Father Bladder cancer Cancer of kidney Social History Social History Social History: Years smoked: 6 Smoking status: Former smoker Tobacco type: cigarettes Second hand tobacco smoke exposure: Yes Smoking end date: 06/02/15 Alcohol intake: current Alcohol use details: rarely Substance use: former Substance use type: marijuana Other substance usage details: last usage 10 years ago Do You Feel Safe in your Home?: Yes Lack of Transportation: No Lack of Food: Never True Current Housing: I Have Housing Concerned About Future Housing: No Difficulty Paying Gas/Electric Bills: No Difficulty Paying for Meds: No Currently Unemployed: No Education: High School Diploma/GED Difficulty w/ Childcare or Family Care: No Living arrangements: with family Occupation/Education: unemployed 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 There is no relevant family history pertinent to the presenting complaint. Exam Narrative: GENERAL: Well-appearing, well-nourished, and in no acute distress. HEAD: Normocephalic, atraumatic. EYES: PERRLA and EOMI. ENT: Nares clear, no rhinorrhea or epistaxis. Mucous membranes moist. Posterior pharynx with no erythema, tonsillar enlargement, exudates or lesions present. Bilateral TMs are clear no erythema foreign bodies canal. Patient does have tenderness noted the left side of the maxillary sinuses on palpation. NECK: Supple. No lymphadenopathy CHEST: Clear to auscultation. No respiratory distress. HEART: Regular rate and rhythm. No murmur heard. Normal peripheral pulses. ABDOMEN: Soft, nontender, nondistended, normal active bowel sounds. EXTREMITIES: Normal range of motion. No edema. SKIN: Warm, dry, no rash. NEURO: No focal deficits. Alert and oriented x3. Course Course Level of Care: Express Care Visit Vital Signs Vital signs: Vital Signs Temperature 36.9 C 08/21/25 09:58 Pulse Rate 93 08/21/25 09:58 Respiratory Rate 18 08/21/25 09:58 Blood Pressure 131/76 08/21/25 09:58 Pulse Oximetry 99 08/21/25 09:58 Oxygen Delivery Room Air 08/21/25 09:58 Temperature 36.9 C 08/21/25 09:58 Pulse Rate 93 08/21/25 09:58 Respiratory Rate 18 08/21/25 09:58 Blood Pressure 131/76 08/21/25 09:58 Pulse Oximetry 99 08/21/25 09:58 Oxygen Delivery Room Air 08/21/25 09:58 Vital signs reviewed. Medical Decision Making MDM Narrative Medical decision making narrative: Discussed with patient that we will switch up her methylprednisone to 20 mg prednisone for 5 days to help with sinus pressure and pain. Discussed with patient I would also recommend adding in a daily antihistamine something such as Zyrtec, Claritin and Catie and continue her Flonase and may take Tylenol ibuprofen as needed for pain. Discussed with patient if she continues to have symptoms she will need to follow-up with her ENT for further evaluation. Patient verbalized understanding denies any other questions or concerns at this time. Differential Diagnosis Differential Diagnosis: Differential diagnosis: Allergic rhinitis, chronic sinusitis, tonsillitis, acute sinusitis, infectious mononucleosis, seasonal influenza, pertussis, diphtheria, meningococcal disease, viral syndrome, viral bronchitis, RSV, COVID- 19 Vital Signs Vital Signs: Vital Signs Temperature 36.9 C 08/21/25 09:58 Pulse Rate 93 08/21/25 09:58 Respiratory Rate 18 08/21/25 09:58 Blood Pressure 131/76 08/21/25 09:58 Pulse Oximetry 99 08/21/25 09:58 Oxygen Delivery Room Air 08/21/25 09:58 Temperature 36.9 C 08/21/25 09:58 Pulse Rate 93 08/21/25 09:58 Respiratory Rate 18 08/21/25 09:58 Blood Pressure 131/76 08/21/25 09:58 Pulse Oximetry 99 08/21/25 09:58 Oxygen Delivery Room Air 08/21/25 09:58 Discharge Plan Discharge Clinical Impression: Acute viral sinusitis Patient Disposition: Home Condition: Stable Instructions: Antibiotic Form, Sinusitis (ED) Additional Instructions: Viral illness may last between 7-12days; antibiotic is NOT recommended at this time. Recommend antihistamine such as Benadryl at night time and Claritin/Zyrtec/Catie during the day Cough syrup may cause drowsiness; avoid driving or take it at night time. Also, recommend symptomatic treatment includes: rest, fluids, and increase humidity of the air at home. Recommend Acetaminophen or nonsteroidal anti-inflammatory agents (NSAIDs) as directed in the bottle to reduce fever and/pain/headache. Avoid smoking/second-hand smoke. Limit visits to areas with large crowds. Please schedule a follow-up visit with your personal physician for further evaluation and treatment within 3-5days. Including recheck and discussion of your blood pressure. If your symptoms persist, change or worsen significantly before you can contact your personal physician then please, without delay, go to the emergency department for further evaluation. Patient Language: Vietnamese Prescriptions: New prednisone 20 mg tablet 20 mg PO DAILY 5 Days Qty: 5 0RF Follow-up/Referrals: Dc Gutierrez MD [Primary Care Provider, Family Practice] Time of Disposition: 11:28
== END 2025-08-21 11:35 | disposition home or self-care (01) ==
PROVIDERS: Emergency Provider Nurse Practitioner Family; PCP Family Medicine
DX: J01.90 Acute sinusitis, unspecified (principal); K21.9 Gastro-esophageal reflux disease without esophagitis; Z87.891 Personal history of nicotine dependence
CPT/HCPCS: 99213; G0463